=== PATIENT | female | born 1970 | race Caucasian/White ===

== ENCOUNTER 2017-04-29 17:26 | Emergency (ER) | payer OTHER ==
[~2017-04-29] VITALS: Ht 167.6 cm; Wt 61.2 kg
[2017-04-29] MEDS ORDERED: SYNTHROID175 MCG PO (17:34)
[2017-04-29] MEDS ORDERED: OMEPRAZOLE 20 M20 M1 PO (17:34)
[2017-04-29] MEDS ORDERED: WELLBUTRIN SR150 MG PO (17:35)
[2017-04-29] MEDS ORDERED: MELATONIN5 M1 PO (17:35)
[2017-04-29] MEDS ORDERED: LEXAPRO20 MG PO (17:35)
[2017-04-29] MEDS ORDERED: IBUPROFEN 600600 M1 PO (17:42)
[2017-04-29] MEDS ORDERED: ONDANSETRON HCL4 M2 PO (17:42)
== END 2017-04-29 18:38 | disposition home or self-care (01) ==
LOC: ER 17:26
DX: S01.01XA Laceration without foreign body of scalp, initial encounter (principal); W01.0XXA Fall on same level from slipping, tripping and stumbling without subsequent striking against object, initial encounter; Y93.89 Activity, other specified; Y92.89 Other specified places as the place of occurrence of the external cause; Y99.8 Other external cause status